=== PATIENT | female | born 1975 | race Caucasian/White ===

== ENCOUNTER 2019-02-21 19:31 | Inpatient (IN) ==
[2019-02-21 21:29] LABS: Apearance,Urine CLEAR (Clear); Bilirubin,Urine Negative (Negative); Blood, Urine Moderate mg/dL (Negative); Glucose,Urine (UA) Negative (Negative); Ketones,Urine 20 mg/dL (Negative); Mucus,Urine Occasional /LPF (Occasional); Nitrite,Urine Negative (Negative); Protein,Urine Negative; RBC,Urine 2 /HPF (0-4); Squamous Epithelial Cell,Urine Occasional /HPF (0-10); Urine Color Yellow (Yellow); Urine Specific Gravity 1.017 (1.001-1.035); Urine Urobilinogen < 2.0 EU/DL (0.2-1.0); WBC,Urine 1 /HPF (0-6)
[2019-02-22] MEDS ORDERED: MEPERIDINE 25 MG/1 ML VIAL IV STA (01:03)
[2019-02-22] MEDS ORDERED: SODIUM CHLORIDE 0.9% 1,000 ML IV STA (01:03)
[2019-02-22] MEDS ORDERED: ACETAMINOPHEN 500 MG TABLET PO STA (01:03)
[2019-02-22] MEDS ORDERED: ONDANSETRON 4 MG/2 ML VIAL IV STA (01:03)
[2019-02-22 01:37] LABS: Basophils % 0.4 % (0.0-0.8); Eosinophils % 0.2 % (0.00-10.9); Hematocrit 39.7 VOL% (35.7-47.0); Hemoglobin 12.7 GM/DL (12.0-16.0); Immature Granulocytes % 0.3 %; Immature Granulocytes Absolute 0.03 #; Lymphocytes # 1.5 10*3/uL (1.4-4.0); Lymphocytes % 17.2 % (21.3-54.2); Mean Corpuscular Volume 102.6 FL (87-102); Monocytes % 4.7 % (1.7-12.7); Neutrophils % 77.2 % (38.7-73.9); Platelet Count 261 T/CUMM (130-400); Red Blood Count 3.87 MC/CUMM (3.8-5.5); Red Cell Distribution Width 12.3 % (9.3-17.3); White Blood Count 8.9 T/CUMM (4-12)
[2019-02-22 01:45] LABS: PT Patient Result 10.6 SECS
[2019-02-22 01:56] LABS: Alanine Aminotransferase 21 U/L (13-56); Albumin 3.7 G/DL (3.4-5.0); Alkaline Phosphatase 67 U/L (45-117); Amylase 36 U/L (25-115); Aspartate Amino Transferase 16 U/L (0-37); Bilirubin,Total < 0.39 MG/DL (0.2-1.0); Blood Urea Nitrogen 10 MG/DL (7-18); Calcium 9.1 MG/DL (8.5-10.1); Glucose 109 MG/DL (74-106); Osmolality,Calculated 282.1 MOS/KG (273-304); Total Protein 7.6 G/DL (6.4-8.3)
[2019-02-22] MEDS ORDERED: cefTRIAXone 2,000 MG in SODIUM CHLORIDE 0.9% 100 ML IV STA (03:05)
[2019-02-22 03:54] LABS: Sedimentation Rate-Westergren 24 MM/HR (0-20)
[2019-02-22] MEDS ORDERED: ACETAMINOPHEN 325 MG TABLET PO PRN (04:58)
[2019-02-22] MEDS ORDERED: BUTALBITAL ACETAMINOPHEN PO PRN (04:58)
[2019-02-22] MEDS ORDERED: PROMETHAZINE 25 MG/1 ML VIAL IM PRN (04:58)
[2019-02-22] MEDS: HYDROmorphone 2 MG/1 ML VIAL IV PRN ×4 (05:45→22:45)
[2019-02-22] MEDS: SODIUM CHLORIDE 0.9% 1,000 ML IV SCH ×2 (05:45→15:43)
[2019-02-22] MEDS: ONDANSETRON 4 MG/2 ML VIAL IV PRN ×3 (05:45→18:37)
[2019-02-22] MEDS: ACYCLOVIR INJ 1,000 MG in SODIUM CHLORIDE 0.9% 250 ML IV SCH ×3 (05:49→22:10)
[2019-02-22] MEDS ORDERED: NABUMETONE 500 MG TABLET PO SCH (09:00)
[2019-02-22] MEDS ORDERED: TACROLIMUS TOP SCH (09:00)
[2019-02-22] MEDS ORDERED: NABUMETONE 750 MG TABLET PO SCH ×2 (09:00→21:00)
[2019-02-22] MEDS: DOCUSATE SODIUM 100 MG CAPSULE PO SCH ×2 (09:59→20:55)
[2019-02-22] MEDS: PANTOPRAZOLE 40 MG TABLET PO SCH (10:00)
[2019-02-22] MEDS: CLOBETASOL 0.05% OINT 15 GM TUBE TOP SCH (10:01)
[2019-02-22] MEDS: VANCOMYCIN INJ 1,000 MG in SODIUM CHLORIDE 0.9% 250 ML IV SCH ×2 (10:01→20:52)
[2019-02-22 15:13] LABS: Lymphocytes,CSF 100 %
[2019-02-22 15:16] LABS: Red Blood Cell,CSF 29 C/CUMM; White Blood Cell,CSF 15 C/CUMM
[2019-02-22 15:18] LABS: Appearance,CSF Clear
[2019-02-22] MEDS: cefTRIAXone 1,000 MG in SYRINGE 1 EACH IV SCH (15:46)
[2019-02-22] MEDS ORDERED: SUMAtriptan 6 MG/0.5 ML VIAL SUBCUT PRN (16:47)
[2019-02-22] MEDS: TACROLIMUS 0.1% TOP SCH (20:55)
[2019-02-22] MEDS: chlorproMAZINE INJ 25 MG in SODIUM CHLORIDE 0.9% 100 ML IV SCH (23:38)
[2019-02-23] MEDS: cefTRIAXone 1,000 MG in SYRINGE 1 EACH IV SCH (03:17)
[2019-02-23] MEDS: SODIUM CHLORIDE 0.9% 1,000 ML IV SCH ×3 (03:17→19:24)
[2019-02-23 05:49] LABS: Basophils % 0.3 % (0.0-0.8); Eosinophils % 0.1 % (0.00-10.9); Hematocrit 34.9 VOL% (35.7-47.0); Hemoglobin 11.1 GM/DL (12.0-16.0); Immature Granulocytes % 0.5 %; Immature Granulocytes Absolute 0.05 #; Lymphocytes # 1.5 10*3/uL (1.4-4.0); Lymphocytes % 15.9 % (21.3-54.2); Mean Corpuscular HGB Conc 31.8 GM/DL (32-36); Mean Corpuscular Volume 102.9 FL (87-102); Mean Platelet Volume 10.3 FL (9.6-12.0); Monocytes % 5.5 % (1.7-12.7); Neutrophils % 77.7 % (38.7-73.9); Platelet Count 213 T/CUMM (130-400); Red Blood Count 3.39 MC/CUMM (3.8-5.5); Red Cell Distribution Width 11.9 % (9.3-17.3); White Blood Count 9.7 T/CUMM (4-12)
[2019-02-23] MEDS: ACYCLOVIR INJ 1,000 MG in SODIUM CHLORIDE 0.9% 250 ML IV SCH (06:11)
[2019-02-23 06:21] LABS: Alanine Aminotransferase 14 U/L (13-56); Albumin 2.7 G/DL (3.4-5.0); Alkaline Phosphatase 53 U/L (45-117); Aspartate Amino Transferase 11 U/L (0-37); Bilirubin,Total < 0.39 MG/DL (0.2-1.0); Blood Urea Nitrogen 4 MG/DL (7-18); Calcium 7.9 MG/DL (8.5-10.1); Glucose 93 MG/DL (74-106); Osmolality,Calculated 277.3 MOS/KG (273-304); Total Protein 5.8 G/DL (6.4-8.3)
[2019-02-23] MEDS: HYDROmorphone 2 MG/1 ML VIAL IV PRN ×2 (09:03→17:30)
[2019-02-23] MEDS: PANTOPRAZOLE 40 MG TABLET PO SCH (09:09)
[2019-02-23] MEDS: VANCOMYCIN INJ 1,000 MG in SODIUM CHLORIDE 0.9% 250 ML IV SCH (09:10)
[2019-02-23] MEDS: DOCUSATE SODIUM 100 MG CAPSULE PO SCH ×2 (12:45→20:21)
[2019-02-23] MEDS: TACROLIMUS 0.1% TOP SCH ×2 (12:45→20:21)
[2019-02-23] MEDS: CLOBETASOL 0.05% OINT 15 GM TUBE TOP SCH (12:46)
[2019-02-23] MEDS: ACYCLOVIR INJ 650 MG in SODIUM CHLORIDE 0.9% 100 ML IV SCH (15:07)
[2019-02-23] MEDS: diphenhydrAMINE CAP 25 MG CAPSULE PO PRN (19:45)
[2019-02-23] MEDS: chlorproMAZINE INJ 25 MG in SODIUM CHLORIDE 0.9% 100 ML IV SCH (20:21)
[2019-02-24] MEDS: ACYCLOVIR INJ 650 MG in SODIUM CHLORIDE 0.9% 100 ML IV SCH ×2 (00:59→10:11)
[2019-02-24] MEDS: HYDROmorphone 2 MG/1 ML VIAL IV PRN (07:48)
[2019-02-24] MEDS: DOCUSATE SODIUM 100 MG CAPSULE PO SCH ×2 (10:13→20:26)
[2019-02-24] MEDS: TACROLIMUS 0.1% TOP SCH ×2 (10:17→20:31)
[2019-02-24] MEDS: CLOBETASOL 0.05% OINT 15 GM TUBE TOP SCH (10:17)
[2019-02-24] MEDS: diphenhydrAMINE CAP 25 MG CAPSULE PO PRN ×2 (10:21→22:17)
[2019-02-24] MEDS ORDERED: PROMETHAZINE 25 MG/1 ML VIAL IM PRN (13:59)
[2019-02-24] MEDS ORDERED: methylPREDNISolone 4 MG TABLET PO SCH (14:00)
[2019-02-24] MEDS: SUMAtriptan 6 MG/0.5 ML VIAL SUBCUT PRN (16:13)
[2019-02-24] MEDS: methylPREDNISolone 4 MG TABLET PO SCH ×2 (19:20→22:17)
[2019-02-24] MEDS: KETOROLAC 30 MG/1 ML VIAL IV PRN (22:16)
[2019-02-25] MEDS: methylPREDNISolone 4 MG TABLET PO SCH (08:25)
[2019-02-25] MEDS: DOCUSATE SODIUM 100 MG CAPSULE PO SCH (08:25)
[2019-02-25] MEDS: KETOROLAC 30 MG/1 ML VIAL IV PRN (08:57)
[2019-02-25] MEDS: SUMAtriptan 6 MG/0.5 ML VIAL SUBCUT PRN (11:15)
[2019-02-25] MEDS: TACROLIMUS 0.1% TOP SCH (11:18)
[2019-02-25] MEDS: CLOBETASOL 0.05% OINT 15 GM TUBE TOP SCH (11:35)
[2019-02-25 11:48] VITALS: BP 120/86
[2019-02-25 21:41] LABS: Herpes Source ABDOMEN
== END 2019-02-25 15:26 | disposition home or self-care (01) | DRG 103 ==
LOC: N.ED 19:31 → N.EDINP 02-22 02:59 → N.CC 02-22 04:12 → N.2E 02-22 17:35
PROVIDERS: ADMIT Family Medicine; ATTEND Family Medicine